=== PATIENT | male | born 1990 | race Caucasian/White ===

== ENCOUNTER 2022-04-19 16:40 | Emergency (ER) | payer OTHER, SELFPAY ==
--- NOTE | 2022-04-19 16:53 | PC.NURSE ---
Called for triage 1646: Had already left the ED. Registration states they didn't want to be in the ED
== END 2022-04-19 16:48 | disposition left against medical advice (07) ==
PROVIDERS: Emergency Provider Emergency Medicine
DX: M54.50 Low back pain, unspecified (principal)